=== PATIENT | male | born 1990 | race Caucasian/White ===

== ENCOUNTER 2023-10-25 15:48 | Emergency (ER) | payer OTHER ==
[2023-10-25 15:54] VITALS: BP 131/81; PULSE 118; RESP 20; TEMP 100.1; BMI 33.9
[2023-10-25] MEDS: IBUPROFEN 600 MG TABLET (FP) PO ONE (16:29)
[2023-10-25] MEDS ORDERED: IBUPROFEN 600 MG TABLET (FP) PO ONE (16:30)
[2023-10-25] MEDS ORDERED: AMOXICILLIN 500 MG CAPSULE (FP) PO ONE (17:04)
== END 2023-10-25 18:08 | disposition home or self-care (01) ==
LOC: JERFT 15:48
DX: J02.0 Streptococcal pharyngitis (principal); R09.81 Nasal congestion; R05.9 Cough, unspecified; R07.0 Pain in throat; R53.83 Other fatigue; R50.9 Fever, unspecified; Z20.822 Contact with and (suspected) exposure to COVID-19
CPT/HCPCS: 0241U-QW; 87651; 99283-25